=== PATIENT | male | born 1945 | race American Indian/Alaskan Native ===

== ENCOUNTER 2021-01-27 03:56 | Emergency (ER) | payer MEDICARE, OTHER ==
--- NOTE | 2021-01-27 04:19 | Emergency Department Report ---
ED CPR HPI - General Chief Complaint: Cardiac Arrest/CPR Stated Complaint: RESPIRATORY ARREST Time Seen by Provider: 01/27/21 03:56 Source: EMS Mode of arrival: Stretcher Limitations: Other - History of Present Illness Initial Comments: Patient is a 75-year-old male who presents emergency room with EMS for respiratory failure. EMS brought patient to hospital. Report received from EMS. States the patient has been down for approximately 15 to 30 minutes. Per EMS, the patient stated he was having difficulty breathing and collapse. EMS found the patient foaming at the mouth and not breathing. EMS states that the patient had a pulse. Patient was intubated with a Collin tube by EMS. Past medical history of diabetes. EMS placed a right tibial IO. MD Complaint: found unresponsive Place: home Bystander CPR Performed: No AED Applied by Bystander/Automatic Grinding Machine Operator: No Shock Advised: No Initial Findings in the Field: unresponsive, no respirations, good pulses Associated Symptoms: shortness of breath Treatments Prior to Arrival: BMV, other airway device, atropine mgs # ED Review of Systems ROS: Stated complaint: RESPIRATORY ARREST Other details as noted in HPI ED Physical Exam - General Limitations: Altered Mental Status, Physical Limitation, Other General appearance: obtunded - Head Head exam: Present: atraumatic, normocephalic - Eye Eye exam: Present: other (Pupils fixed and dilated) - ENT ENT exam: Present: other (Intubated with a Collin tube.) - Neck Neck exam: Present: normal inspection - Respiratory Respiratory exam: Present: decreased breath sounds - GI/Abdominal GI/Abdominal exam: Present: soft, distended - Rectal Rectal exam: Present: deferred - Extremities Exam Extremities exam: Present: other (Right lower extremity IO noted.) - Skin Skin exam: Present: warm, dry, intact, normal color. Absent: rash ED Course - Reevaluation(s) Reevaluation #1: Patient arrived via EMS. Patient transferred to our rcarr. Patient is noted to not have a pulse. CPR was started. Patient given ACLS medications. Compressions were initiated. Patient has a right lower extremity IO that is functioning. 01/27/21 03:57 Reevaluation #2: Patient is Collin tube was discontinued. CPR was continued. Patient intubated with a standard ET tube with glide scope. See procedure note. 01/27/21 04:05 Reevaluation #3: Ultrasound was used and no cardiac motion was noted. Resuscitation efforts were terminated due to no signs of life. Patient had no pulse. Patient was asystole on the monitor. Family support given once the family arrives. 01/27/21 04:11 - Intubation Time Out Performed: Yes Assist Device Used: fiberoptic device ET Tube Size: 7.5 Tube Secured Depth (cm): 22 Tube Secured Location: teeth Tube Placement Confirmation: visualized tube passing t, equal breath sounds bilat, no breath sounds over epi, confirmation by capnometr Patient Tolerated Procedure: well, no complications Intubation Complications: none ED Medical Decision Making - Medical Decision Making Patient is a 75-year-old male that presents emergency room for respiratory arrest. Patient was sent for cardiac arrest once the initial evaluation took place. Code ran in accordance with ACLS protocol. See nurses code note. Patient given multiple medications. Patient has several rounds of CPR with ACLS protocol. Patient was initially intubated by EMS with a Collin tube and the Collin tube was removed and patient was reintubated without difficulty. Patient had no signs of life, resuscitation efforts were terminated. - Differential Diagnosis Cardiac arrest, respiratory arrest, PA, PE Critical Care Time: Yes Critical care time in (mins) excluding proc time.: 35 Critical care attestation.: If time is entered above; I have spent that time in minutes in the direct care of this critically ill patient, excluding procedure time. Critical Care Time: 35 minutes ED Disposition Clinical Impression: Cardiac arrest Disposition: DC-20 Is pt being admited?: No Does the pt Need Aspirin: No Condition: Undetermined Time of Disposition: 04:45
[2021-01-27] MEDS ORDERED: EPINEPHrine 1 MG/10 ML SYRINGE ONE (05:25)
[2021-01-27] MEDS ORDERED: ATROPINE 0.1% (1 MG/10 ML) CARDIAC SYRINGE ONE (05:25)
[2021-01-27] MEDS ORDERED: CALCIUM CHLORIDE 1,000 MG/10 ML SYRINGE IV ONE (05:25)
== END 2021-01-27 05:00 ==
LOC: ED 03:56
DX: I46.9 Cardiac arrest, cause unspecified (principal)
CPT/HCPCS: 31500; 92950; 99284; J0171; J0461; 96374; 99285